=== PATIENT | female | born 1960 | race Caucasian/White ===

== ENCOUNTER 2017-11-22 20:43 | Emergency (ER) | payer MEDICARE, MEDICAID ==
[~2017-11-22] VITALS: Ht 160 cm; Wt 63.6 kg
[2017-11-22 20:48] VITALS: Ht 160 cm; Wt 63.6 kg
[2017-11-22] MEDS ORDERED: TYLENOL W/CODEI1 TAB PO (23:14)
[2017-11-22 23:34] VITALS: BP 129/88
== END 2017-11-22 23:34 | disposition home or self-care (01) ==
LOC: D.ER 20:43
DX: S86.912A Strain of unspecified muscle(s) and tendon(s) at lower leg level, left leg, initial encounter (principal); W18.31XA Fall on same level due to stepping on an object, initial encounter; Y93.89 Activity, other specified; Y92.830 Public park as the place of occurrence of the external cause; M25.462 Effusion, left knee; H91.3 Deaf nonspeaking, not elsewhere classified

== ENCOUNTER → 2017-12-26 14:21 | Outpatient (CLI) | payer MEDICARE, MEDICAID ==
[2017-11-22 20:48] VITALS: BMI 24.8
[~2017-12-26 14:21] MED LIST: TYLENOL W/CODEI1 TAB PO
== END | disposition home or self-care (01) ==
LOC: D.CT 14:21
DX: M25.562 Pain in left knee (principal)

== ENCOUNTER 2018-02-15 08:29 | Inpatient (IN) | payer MEDICARE, MEDICAID ==
[~2018-02-15] VITALS: Ht 160 cm; Wt 68.0 kg
--- NOTE | ~2018-02-15 | MORECARE ---
CASE MANAGEMENT DISCHARGE SUMMARY PATIENT: DAVID STERN UNIT: [id number] ADM DATE: 02/15/18 AGE: 57 : 58 SEX: F ROOM/BED: D.2208 AUTHOR: ALEJANDRO,DOC PHYSICIAN: REFERRING PHYSICIAN: LAMONTE MARSH MD DATE OF SERVICE: 02/15/18 Discharge Plan Patient Name: DAVID STERN Facility: [facility]:[place] : 1960 Planned Disposition: Home Anticipated Discharge Date: 02/18/18 Discharge Date: Expected LOS: 3 Initial Reviewer: [email or web address] Initial Review Date: 02/15/2018 Generated: 02/15/18 2:55 pm DCP- Discharge Planning Updated by [email or web address]: Susi Mcgowan on 02/15/18 12:[address] Patient Name: DAVID STERN Admission Status: ER Accout number: [id number] Admission Date: 02-15-2018 : 1960 Admission Diagnosis: Attending: LAMONTE MARSH Current LOS: 1 Anticipated DC Date: 02-18-2018 Planned Disposition: Home Primary Insurance: [employer] PPO MCR ADVANT Discharge Planning Comments: CM met with patient and interrupter to complete initial dc planning assessment. CM educated patient on the CM role and verbal consent given by patient to complete assessment. Patient lives at home with her friend/roommate. Patient is deaf and interrupter assisted with translation and answers. At discharge patient plans to return home with roommate and feels this is a safe discharge. Patient denied known discharge needs at this time. CM will continue to follow and will assist as needed with dc plans/needs. See below for more assessment information. Peer Counselor: Susi Mcgowan RN, [facility] DCPIA - Discharge Planning Initial Assessment Updated by [email or web address]: Susi Mcgowan on 02/15/18 1:52 pm * Is the patient Alert and Oriented? Yes * How many steps to enter\exit or inside your home? None * PCP Shaye Andrews APRN @ [facility] office * Pharmacy [facility] * Preadmission Environment Home with Family * ADLs Independent * Equipment None * Other Equipment Hearing devices present during ER visit. * List name and contact numbers for known caregivers / representatives who currently or will assist patient after discharge: Tosin Kent - [phone] Bam Mack (Deaf- Text Only) [phone] * Verbal permission to speak to the caregivers and representatives has been obtained from the patient. Yes * Community resources currently utilized Other * Please name any agencies selected above. Front End Application Developer present during assessment * Additional services required to return to the preadmission environment? No * Can the patient safely return to the preadmission environment? Yes * Has this patient been hospitalized within the prior 30 days at any hospital? No Patient Name: DAVID STERN Page [id number] at 1356 All edits/amendments must be made on the electronic document DICTATION DATE: 02/15/18 1355 FLIGHT OPERATIONS INSPECTOR: DAVID 02/15/18 1355 RPT#: [id number] DC DATE: STATUS: ADM IN [facility] [address] [place] [address] END OF REPORT
--- NOTE | ~2018-02-15 | MORECARE ---
CASE MANAGEMENT DISCHARGE SUMMARY PATIENT: DAVID STERN UNIT: [id number] ADM DATE: 02/15/18 AGE: 57 : 58 SEX: F ROOM/BED: D.2200 AUTHOR: ALEJANDRO,DOC PHYSICIAN: REFERRING PHYSICIAN: LAMONTE MARSH MD DATE OF SERVICE: 02/21/18 Discharge Plan Patient Name: DAVID STERN Facility: [facility]:[place] : 1960 Planned Disposition: Home Anticipated Discharge Date: 02/18/18 Discharge Date: 02/18/2018 Expected LOS: 3 Initial Reviewer: [email or web address] Initial Review Date: 02/15/2018 Generated: 02/21/18 10:25 am DCP- Discharge Planning Updated by [email or web address]: Susi Mcgowan on 02/15/18 12:[address] Patient Name: DAVID STERN Admission Status: ER Accout number: [id number] Admission Date: 02-15-2018 : 1960 Admission Diagnosis: Attending: LAMONTE MARSH Current LOS: 1 Anticipated DC Date: 02-18-2018 Planned Disposition: Home Primary Insurance: [employer] CHOICE PPO MCR ADVANT Discharge Planning Comments: CM met with patient and interrupter to complete initial dc planning assessment. CM educated patient on the CM role and verbal consent given by patient to complete assessment. Patient lives at home with her friend/roommate. Patient is deaf and interrupter assisted with translation and answers. At discharge patient plans to return home with roommate and feels this is a safe discharge. Patient denied known discharge needs at this time. CM will continue to follow and will assist as needed with dc plans/needs. See below for more assessment information. Rn Managed Care: Susi Mcgowan RN, [facility] DCPIA - Discharge Planning Initial Assessment Updated by [email or web address]: Susi Mcgowan on 02/15/18 1:52 pm * Is the patient Alert and Oriented? Yes * How many steps to enter\exit or inside your home? None * PCP Shaye Andrews APRN @ [facility] office * [facility]acy [facility] * Preadmission Environment Home with Family * ADLs Independent * Equipment None * Other Equipment Hearing devices present during ER visit. * List name and contact numbers for known caregivers / representatives who currently or will assist patient after discharge: Tosin Kent - [phone] Bam Mack (Deaf- Text Only) [phone] * Verbal permission to speak to the caregivers and representatives has been obtained from the patient. Yes * Community resources currently utilized Other * Please name any agencies selected above. Sanitation Engineer present during assessment * Additional services required to return to the preadmission environment? No * Can the patient safely return to the preadmission environment? Yes * Has this patient been hospitalized within the prior 30 days at any hospital? No Last DP export: 02/15/18 12:55 p Patient Name: DAVID STERN Page [id number] at 0925 All edits/amendments must be made on the electronic document DICTATION DATE: 02/21/18923 AFTER SCHOOL COORDINATOR: DAVID 02/21/18923 RPT#: [id number] DC DATE:02/18/18 STATUS: DIS IN [facility] [address] [place] [address] END OF REPORT
[2018-02-15 09:14] LABS: BASOPHILS 0.1 % (0-2); EOSINOPHILS 0.6 % (0-7); HEMATOCRIT 39.9 % (36.0-48.0); HEMOGLOBIN 13.4 g/dL (12-16); IMMATURE GRANULOCYTES 0.2 % (0-5); LYMPHOCYTES 13.5 % (15-50); MCH 30.7 pg (26.0-34.0); MCHC 33.6 g/dL (31.0-37.0); MCV 91.3 fL (80.0-100.0); MONOCYTES 5.4 % (2-11); NEUTROPHILS 80.2 % (40-80); PLATELET COUNT 356 10x3/uL (130-400); RBC 4.37 10x6/uL (4.00-5.40); RDW 12.6 % (11.5-14.5); WBC 9.6 10x3/uL (4.8-10.8)
[2018-02-15 09:29] LABS: APPEARANCE CLEAR (CLEAR); BILIRUBIN NEGATIVE (NEGATIVE); COLOR YELLOW (YELLOW); GLUCOSE NEGATIVE (NEGATIVE); KETONE NEGATIVE (NEGATIVE); NITRITE NEGATIVE (NEGATIVE); PROTEIN TRACE mg/dL (NEGATIVE); UROBILINOGEN NORMAL (NORMAL)
[2018-02-15 09:30] LABS: BACTERIA FEW /hpf (NONE SEEN); EPITHELIAL CELLS 0-5 /hpf (0-5); RED CELLS - URINE 0-5 /hpf (0-5)
[2018-02-15 09:38] LABS: ALBUMIN 2.9 g/dL (3.4-5.0); ALKALINE PHOSPHATASE 102 U/L (46-116); ALT (SGPT) 36 U/L (10-68); AMYLASE - SERUM 25 U/L (25-115); BILIRUBIN - TOTAL 0.29 mg/dL (0.2-1.3); CALC OSMOLALITY 275 mosm/kg (275-300); CALCIUM 9.9 mg/dL (8.5-10.1); CARBON DIOXIDE 27.4 mmol/L (21.0-32.0); CHLORIDE - SERUM 101 mmol/L (98-107); CREATININE - SERUM 0.7 mg/dL (0.6-1.3); GLUCOSE 111 mg/dL (74-106); LIPASE 130 U/L (73-393); POTASSIUM - SERUM 3.4 mmol/L (3.5-5.1); PROTEIN - SERUM 8.1 g/dL (6.4-8.2); SODIUM 138 mmol/L (136-145); UREA NITROGEN 9 mg/dL (7-18); eGFR NON AFRICAN AMERICAN > 90 mL/min (90-120)
[2018-02-15 10:07] VITALS: BP 128/72
[2018-02-15 12:08] VITALS: BP 123/68
[2018-02-15 12:45] VITALS: BP 130/60; BMI 26.6
[2018-02-15 12:50] VITALS: BP 130/60
[2018-02-15] MEDS ORDERED: FENOFIBRATE134 MG PO (16:32)
[2018-02-15] MEDS ORDERED: LINZESS145 MCG PO (16:32)
[2018-02-15] MEDS ORDERED: ZANAFLEX4 MG PO (16:32)
[2018-02-15] MEDS ORDERED: ABILIFY10 MG PO (16:33)
[2018-02-15] MEDS ORDERED: OMEPRAZOLE40 MG PO (16:34)
[2018-02-15] MEDS ORDERED: MECLIZINE HCL25 MG PO (16:34)
[2018-02-15] MEDS ORDERED: LASIX40 MG PO (16:34)
[2018-02-15 17:11] VITALS: BP 127/64
[2018-02-15 19:44] VITALS: BP 129/54
[2018-02-16 01:05] VITALS: BP 152/68
[2018-02-16 04:45] VITALS: BP 134/60
[2018-02-16 06:13] LABS: BASOPHILS 0.1 % (0-2); EOSINOPHILS 0.3 % (0-7); HEMATOCRIT 36.8 % (36.0-48.0); HEMOGLOBIN 12.1 g/dL (12-16); IMMATURE GRANULOCYTES 0.2 % (0-5); MCH 30.1 pg (26.0-34.0); MCHC 32.9 g/dL (31.0-37.0); MCV 91.5 fL (80.0-100.0); MONOCYTES 6.9 % (2-11); NEUTROPHILS 82.5 % (40-80); PLATELET COUNT 350 10x3/uL (130-400); RBC 4.02 10x6/uL (4.00-5.40); RDW 12.7 % (11.5-14.5); WBC 10.4 10x3/uL (4.8-10.8)
[2018-02-16 06:36] LABS: ALBUMIN 2.5 g/dL (3.4-5.0); ALKALINE PHOSPHATASE 90 U/L (46-116); ALT (SGPT) 27 U/L (10-68); BILIRUBIN - TOTAL 0.35 mg/dL (0.2-1.3); CALC OSMOLALITY 272 mosm/kg (275-300); CALCIUM 9.1 mg/dL (8.5-10.1); CARBON DIOXIDE 26.7 mmol/L (21.0-32.0); CHLORIDE - SERUM 100 mmol/L (98-107); CREATININE - SERUM 0.8 mg/dL (0.6-1.3); GLUCOSE 117 mg/dL (74-106); POTASSIUM - SERUM 3.6 mmol/L (3.5-5.1); PROTEIN - SERUM 7.1 g/dL (6.4-8.2); SODIUM 137 mmol/L (136-145); UREA NITROGEN 7 mg/dL (7-18); eGFR NON AFRICAN AMERICAN 78 mL/min (90-120)
[2018-02-16 09:18] VITALS: BP 115/59
[2018-02-16 11:54] VITALS: Ht 160 cm; Wt 68.0 kg
[2018-02-16 12:28] VITALS: BP 139/70
[2018-02-16 16:28] VITALS: BP 124/62
[2018-02-16 20:06] VITALS: BP 115/51
[2018-02-17 04:26] VITALS: BP 121/63
[2018-02-17 06:47] LABS: BASOPHILS 0.1 % (0-2); HEMATOCRIT 34.3 % (36.0-48.0); HEMOGLOBIN 11.4 g/dL (12-16); IMMATURE GRANULOCYTES 0.4 % (0-5); LYMPHOCYTES 13.7 % (15-50); MCH 30.2 pg (26.0-34.0); MCHC 33.2 g/dL (31.0-37.0); MCV 90.7 fL (80.0-100.0); MEAN PLATELET VOLUME 8.9 fL (7.4-10.4); MONOCYTES 6.4 % (2-11); NEUTROPHILS 78.4 % (40-80); PLATELET COUNT 320 10x3/uL (130-400); RBC 3.78 10x6/uL (4.00-5.40); RDW 12.7 % (11.5-14.5); WBC 8.1 10x3/uL (4.8-10.8)
[2018-02-17 06:55] LABS: CALC OSMOLALITY 277 mosm/kg (275-300); CALCIUM 8.8 mg/dL (8.5-10.1); CARBON DIOXIDE 23.8 mmol/L (21.0-32.0); CHLORIDE - SERUM 106 mmol/L (98-107); CREATININE - SERUM 0.6 mg/dL (0.6-1.3); GLUCOSE 110 mg/dL (74-106); POTASSIUM - SERUM 3.5 mmol/L (3.5-5.1); SODIUM 140 mmol/L (136-145); UREA NITROGEN 6 mg/dL (7-18); eGFR NON AFRICAN AMERICAN > 90 mL/min (90-120)
[2018-02-17 09:47] VITALS: BP 131/61
[2018-02-17 13:46] VITALS: BP 131/59
[2018-02-17 16:47] VITALS: BP 117/53
[2018-02-17 21:29] VITALS: BP 115/53
[2018-02-18 05:02] VITALS: BP 127/64
[2018-02-18 05:25] LABS: BASOPHILS 0.1 % (0-2); EOSINOPHILS 1.4 % (0-7); HEMATOCRIT 34.3 % (36.0-48.0); HEMOGLOBIN 11.4 g/dL (12-16); IMMATURE GRANULOCYTES 0.2 % (0-5); LYMPHOCYTES 14.5 % (15-50); MCH 30.2 pg (26.0-34.0); MCHC 33.2 g/dL (31.0-37.0); MEAN PLATELET VOLUME 9.1 fL (7.4-10.4); MONOCYTES 6.8 % (2-11); PLATELET COUNT 340 10x3/uL (130-400); RBC 3.77 10x6/uL (4.00-5.40); RDW 12.8 % (11.5-14.5); WBC 8.4 10x3/uL (4.8-10.8)
[2018-02-18 05:56] LABS: CALC OSMOLALITY 279 mosm/kg (275-300); CALCIUM 8.4 mg/dL (8.5-10.1); CARBON DIOXIDE 22.8 mmol/L (21.0-32.0); CHLORIDE - SERUM 106 mmol/L (98-107); CREATININE - SERUM 0.6 mg/dL (0.6-1.3); GLUCOSE 105 mg/dL (74-106); POTASSIUM - SERUM 3.6 mmol/L (3.5-5.1); SODIUM 141 mmol/L (136-145); UREA NITROGEN 9 mg/dL (7-18); eGFR NON AFRICAN AMERICAN > 90 mL/min (90-120)
[2018-02-18 08:32] VITALS: BP 137/68
[2018-02-18] MEDS ORDERED: FLORAJEN3 CAPS460 MG PO (12:03)
[2018-02-18] MEDS ORDERED: LEVAQUIN750 MG PO (12:04)
[2018-02-18] MEDS ORDERED: FLAGYL500 MG PO (12:04)
[2018-02-18 12:48] VITALS: BP 134/74
== END 2018-02-18 16:01 | disposition home or self-care (01) | DRG 392 ==
LOC: D.ER 08:29 → D.MS 11:41 → D.EDHOLD 11:41 → D.MS 12:06 → D.SDCHOLD 02-18 14:16 → D.MS 02-18 14:17
PROVIDERS: Family Medicine; Internal Medicine Nephrology
DX: K57.80 Diverticulitis of intestine, part unspecified, with perforation and abscess without bleeding (principal); I10 Essential (primary) hypertension; H91.90 Unspecified hearing loss, unspecified ear; E87.6 Hypokalemia; J44.9 Chronic obstructive pulmonary disease, unspecified